=== PATIENT | female | born 1980 | race American Indian/Alaskan Native ===

== ENCOUNTER 2017-04-01 08:37 | Observation (INO) | payer MEDICAID ==
[2017-04-01 09:57] LABS: Basophils % (Auto) 0.3 % (0.0-1.8); Eosinophils % (Auto) 0.2 % (0.0-4.3); Hematocrit 40.6 % (30.3-42.9); Hemoglobin 13.6 gm/dl (10.1-14.3); Mean Corpuscular HGB Conc 34 % (30-34); Mean Corpuscular Hemoglobin 27 pg (28-32); Mean Corpuscular Volume 80 fl (79-97); Platelet Count 316 K/mm3 (140-440); Red Blood Count 5.06 M/mm3 (3.65-5.03); Red Cell Distribution Width 14.8 % (13.2-15.2); White Blood Count 19.9 K/mm3 (4.5-11.0)
[2017-04-01 10:09] LABS: Bacteria,Urine 1+ /HPF (Negative); Bilirubin,Urine NEG (Negative); Blood,Urine MOD (Negative); Ketones,Urine NEG (Negative); Leukocyte Esterase,Urine NEG (Negative); Mucus,Urine FEW /HPF; Nitrite,Urine NEG (Negative); Protein,Urine <15 mg/dL mg/dL (Negative); Urobilinogen,Urine < 2.0 mg/dL (<2.0)
[2017-04-01 10:46] LABS: Alanine Aminotransferase 9 units/L (7-56); Albumin 4.1 g/dL (3.9-5); Alkaline Phosphatase 80 units/L (35-129); Anion Gap 20 mmol/L; Blood Urea Nitrogen 6 mg/dL (7-17); Calcium 9.3 mg/dL (8.4-10.2); Carbon Dioxide 22 mmol/L (22-30); Chloride 98.6 mmol/L (98-107); Glucose 99 mg/dL (65-100); Lipase 16 units/L (13-60); Potassium 3.6 mmol/L (3.6-5.0); Sodium 137 mmol/L (137-145); Total Protein 8.3 g/dL (6.3-8.2)
[2017-04-01] MEDS ORDERED: SUBLIMAZE IV ONE (11:10)
[2017-04-01] MEDS ORDERED: ZOFRAN IV ONE (11:10)
[2017-04-01] MEDS ORDERED: PEPCID IV ONE (11:10)
--- NOTE | 2017-04-01 11:16 | Emergency Department Report ---
HPI - General Chief Complaint: Abdominal Pain Time Seen by Provider: 04/01/17 10:57 - HPI HPI: Room 26 The patient is a 36-year-old female presenting with a chief complaint of abdominal pain. Patient states her symptoms began today with burning pain in the left upper quadrant, epigastric and right upper quadrant. Patient states pain has been intermittent and unchanged with meals. Patient denies radiation of the abdominal pain or use of recent antibiotics. Patient denies nausea vomiting associated has a small amount of diarrhea yesterday morning. Patient denies any history of fever. The patient currently gives her pain a score of 9/ 10. Patient does admit to a cough productive of white sputum for the past 2 weeks Location: [see above] Duration: [see above] Quality: Burning Severity: 9/10 Modifying factors: [see above] Context: [see above] Mode of transportation: [not driving] ED Past Medical Hx - Past Medical History Hx Hypertension: Yes Hx Diabetes: Yes - Surgical History Past Surgical History?: No - Family History Family history: no significant - Social History Smoking Status: Current Every Day Smoker (1/2 pack per day) Substance Use Type: Marijuana - Medications Home Medications: Home Medications Medication Instructions Recorded Confirmed Last Taken Type HYDROcodone/APAP 5-325 [[place] 1 each PO Q6HR PRN #10 tablet 06/11/13 04/01/17 Unknown Rx 5/325 mg] Lisinopril [Zestril] 20 mg PO QDAY 04/01/17 04/01/17 1 Day Ago History ED Review of Systems ROS: Stated complaint: ABD PAIN Other details as noted in HPI Comment: All other systems reviewed and negative Constitutional: denies: chills, fever Eyes: denies: eye pain, eye discharge, vision change ENT: denies: ear pain, throat pain Respiratory: cough. denies: shortness of breath, wheezing Cardiovascular: denies: chest pain, palpitations Endocrine: no symptoms reported Gastrointestinal: abdominal pain, diarrhea. denies: nausea, vomiting Genitourinary: denies: urgency, dysuria, discharge Musculoskeletal: denies: back pain, joint swelling, arthralgia Skin: denies: rash, lesions Neurological: denies: headache, weakness, paresthesias Psychiatric: denies: anxiety, depression Hematological/Lymphatic: denies: easy bleeding, easy bruising Physical Exam - Physical Exam Vital Signs: Vital Signs 04/01/17 04/01/17 04/01/17 08:49 08:52 10:45 Temperature 98.8 F 98.8 F 97.8 F Pulse Rate 70 70 58 L Respiratory 18 18 19 Rate Blood Pressure 156/108 Blood Pressure 156/108 151/90 [Right] O2 Sat by Pulse 100 100 100 Oximetry Physical Exam: GENERAL: The patient is well-developed well-nourished female lying on stretcher not appearing to be in acute distress. [] HEENT: Normocephalic. Atraumatic. Extraocular motions are intact. Patient has moist mucous membranes. NECK: Supple. Trachea midline CHEST/LUNGS: Clear to auscultation. There is no respiratory distress noted. HEART/CARDIOVASCULAR: Regular. There is no tachycardia. There is no gallop rub or murmur. ABDOMEN: Abdomen is soft, with mild discomfort to palpation in the epigastric and right upper quadrant. Patient has normal bowel sounds. There is no abdominal distention. SKIN: There is no rash. There is no edema. There is no diaphoresis. NEURO: The patient is awake, alert, and oriented. The patient is cooperative. The patient has normal speech MUSCULOSKELETAL: There is no CVA tenderness. There is no evidence of acute injury. ED Course Vital Signs 04/01/17 04/01/17 04/01/17 08:49 08:52 10:45 Temperature 98.8 F 98.8 F 97.8 F Pulse Rate 70 70 58 L Respiratory 18 18 19 Rate Blood Pressure 156/108 Blood Pressure 156/108 151/90 [Right] O2 Sat by Pulse 100 100 100 Oximetry - Consultations Consultation #1: 04/01/17 16:[address] Parmar-Will admit ED Medical Decision Making - Lab Data Result diagrams: 04/01/17 09:37 04/01/17 09:37 Laboratory Tests 04/01/17 04/01/17 04/01/17 09:10 09:37 09:37 WBC 19.9 H RBC 5.06 H Hgb 13.6 Hct 40.6 MCV 80 MCH 27 L MCHC 34 RDW 14.8 Plt Count 316 Lymph % (Auto) 16.9 [place] % (Auto) 6.0 Eos % (Auto) 0.2 Baso % (Auto) 0.3 Lymph # 3.4 [place] # 1.2 H Eos # 0.0 Baso # 0.1 Seg Neutrophils % 76.6 H Seg Neutrophils # 15.2 H Sodium 137 Potassium 3.6 Chloride 98.6 Carbon Dioxide 22 Anion Gap 20 BUN 6 L Creatinine 0.6 L Estimated GFR > 60 BUN/Creatinine Ratio 10.00 Glucose 99 Calcium 9.3 Total Bilirubin 0.30 AST 10 ALT 9 Alkaline Phosphatase 80 Total Protein 8.3 H Albumin 4.1 Albumin/Globulin Ratio 1.0 Lipase 16 Urine Color Straw Urine Turbidity Clear Urine pH 7.0 Ur Specific [place] 1.009 Urine Protein <15 mg/dl Urine Glucose (UA) Neg Urine Ketones Neg Urine Blood Mod Urine Nitrite Neg Ur Reducing Substances Not Reportable Urine Bilirubin Neg Urine Ictotest Not Reportable Urine Urobilinogen < 2.0 Ur Leukocyte Esterase Neg Urine WBC (Auto) 1.0 Urine RBC (Auto) 5.0 U Epithel Cells (Auto) 4.0 Urine Bacteria (Auto) 1+ Urine Mucus Few Urine HCG, Qual 04/01/17 10:09 WBC RBC Hgb Hct MCV MCH MCHC RDW Plt Count Lymph % (Auto) Be[place] % (Auto) Eos % (Auto) Baso % (Auto) Lymph # [place] # Eos # Baso # Seg Neutrophils % Seg Neutrophils # Sodium Potassium Chloride Carbon Dioxide Anion Gap BUN Creatinine Estimated GFR BUN/Creatinine Ratio Glucose Calcium Total Bilirubin AST ALT Alkaline Phosphatase Total Protein Albumin Albumin/Globulin Ratio Lipase Urine Color Urine Turbidity Urine pH Ur Specific [place] Urine Protein Urine Glucose (UA) Urine Ketones Urine Blood Urine Nitrite Ur Reducing Substances Urine Bilirubin Urine Ictotest Urine Urobilinogen Ur Leukocyte Esterase Urine WBC (Auto) Urine RBC (Auto) U Epithel Cells (Auto) Urine Bacteria (Auto) Urine Mucus Urine HCG, Qual Negative - EKG Data -: EKG Interpreted by Me EKG shows normal: sinus rhythm Rate: bradycardia (58 bpm) - EKG Data When compared to previous EKG there are: previous EKG unavailable Interpretation: nonspecific ST-T wave edwige (biphasic T-wave in lead 3) - Radiology Data Radiology results: report reviewed (CT abdomen and pelvis, right upper quadrant ultrasound), image reviewed (CT abdomen and pelvis, right upper quadrant ultrasound) see reports - Differential Diagnosis colitis, pancreatitis, gastritis, peptic ulcer disease, UTI Critical care attestation.: If time is entered above; I have spent that time in minutes in the direct care of this critically ill patient, excluding procedure time. ED Disposition Clinical Impression: Cholecystitis, Leukocytosis, Acute abdominal pain Disposition: DC09 OP ADMIT IP TO THIS HOSP Is pt being admited?: Yes Does the pt Need Aspirin: Yes Condition: Fair Instructions: Abdominal Pain (ED) Referrals: PRIMARY CARE, [Primary Care Provider] - 3-5 Days Time of Disposition: 16:12
--- NOTE | 2017-04-01 14:06 | Cat Scan Report ---
CT ABDOMEN AND PELVIS WITHOUT CONTRAST: 04/01/17 08:37:00 CLINICAL:Upper abdominal pain and leukocytosis. TECHNIQUE: Volumetric acquisition and 1.25 millimeter scan reconstructions from the lung bases through the pelvis. The study was performed without oral contrast. FINDINGS: Abdomen:Mild bibasal subsegmental atelectasis. Normal liver size, contour and density. The gallbladder is distended and there is suggestion of a relatively isodense calculus in the gallbladder neck measuring 2.2 cm. The gallbladder wall is normal thickness and there is no pericholecystic fluid or stranding. The bile ducts are normal. Normal stomach, duodenum, pancreas and spleen. Normal adrenal glands. A 2 mm nonobstructive calculus in the lower pole the right kidney. The renal collecting system is normal except for a moderately dilated right renal pelvis. The right ureter is nondilated. Mild dilatation of the left renal pelvis. The left ureter is not distended. Normal aorta and inferior vena cava. The small bowel is normal. Mild diverticulosis of the descending colon but otherwise normal colon. The appendix is normal. No ascites and no pneumoperitoneum. Pelvis: Normal urinary bladder, uterus and rectum.Normal ovaries. Sigmoid colon. No pelvic mass or fluid. IMPRESSION: 1. A 2 cm gallstone which may be lodged in the gallbladder neck. No signs of acute cholecystitis. 2. No evidence of choledocholithiasis. 3. A 2 mm nonobstructive right lower pole renal calculus. 4. Moderate distention of the right renal pelvis without identified etiology. 5. Mild diverticulosis but no diverticulitis. 6. Normal pelvis.
--- NOTE | 2017-04-01 15:57 | Ultrasound Report ---
FINAL REPORT PROCEDURE: US ABDOMEN LIMITED TECHNIQUE: Real-time sonography was performed of right upper quadrant of the abdomen with image documentation. CPT 28543 HISTORY: Upper abdominal pain COMPARISON: CT exam from the same day FINDINGS: Visualized portions of the liver and pancreas display no abnormalities. Right kidney measures 12.6 cm in length and is a 7 millimeter benign cyst in the superior pole. 2.4 cm nonmobile gallstone is seen in the neck of the gallbladder. Gallbladder wall is mildly thickened at 3.5 millimeters may have mild wall edema. Common bile duct is dilated to 7.3 millimeters in diameter. Correlation with MRCP may be useful. IMPRESSION: Cholelithiasis and possible changes of acute cholecystitis are seen. There is extrahepatic biliary ductal dilation. Correlation with MRCP may be useful to assess for obstructing ductal stone.
--- NOTE | 2017-04-01 16:19 | History and Physical Report ---
History of Present Illness Date of examination: 04/01/17 Chief complaint: abd pain History of present illness: 36 year old female with 12-24 hour hx RUQ/epigastic abd pain /10 with WBC 19K, CT abd pelvis and u/s RUQ suggesting impacted stone in neck of gallbladder, LFT s normal, no hx of hepatitis or jaundice. Past History Past Medical History: other (oral controlled) Past Surgical History: No surgical history Social history: smoking Family history: no significant family history Medications and Allergies Allergies Allergy/AdvReac Type Severity Reaction Status Date / Time No Known Allergies Allergy Unverified 06/11/13 14:10 Home Medications Medication Instructions Recorded Confirmed Last Taken Type HYDROcodone/APAP 5-325 [[place] 1 each PO Q6HR PRN #10 tablet 06/11/13 04/01/17 Unknown Rx 5/325 mg] Lisinopril [Zestril] 20 mg PO QDAY 04/01/17 04/01/17 1 Day Ago History Review of Systems - Gastrointestinal abdominal pain, nausea Exam Vital Signs Temp Pulse Resp BP Pulse Ox 98.8 F 70 18 156/108 100 04/01/17 08:49 04/01/17 08:49 04/01/17 08:49 04/01/17 08:49 04/01/17 08:49 - General physical appearance Positive: no distress - Eyes Positive: PERRL, normal occular movement - ENT Positive: normal pinna, normal nares, normal mucosa, no hearing loss, no congestion - Cardiovascular Rhythm: regular Heart Sounds: Present: S1 & S2. Absent: rub, click - Abdomen Abdomen: Present: guarding (MD exam), other (see ER ) Hernia: none Results - Labs 04/01/17 09:37 04/01/17 09:37 Abnormal lab results 04/01/17 04/01/17 Range/Units 09:37 09:37 WBC 19.9 H (4.5-11.0) K/mm3 RBC 5.06 H (3.65-5.03) M/mm3 MCH 27 L (28-32) pg [place] # 1.2 H (0.0-0.8) K/mm3 Seg Neutrophils % 76.6 H (40.0-70.0) % Seg Neutrophils # 15.2 H (1.8-7.7) K/mm3 BUN 6 L (7-17) mg/dL Creatinine 0.6 L (0.7-1.2) mg/dL Total Protein 8.3 H (6.3-8.2) g/dL Diabetes panel 04/01/17 Range/Units 09:37 Sodium 137 (137-145) mmol/L Potassium 3.6 (3.6-5.0) mmol/L Chloride 98.6 (98-107) mmol/L Carbon Dioxide 22 (22-30) mmol/L BUN 6 L (7-17) mg/dL Creatinine 0.6 L (0.7-1.2) mg/dL Glucose 99 (65-100) mg/dL Calcium 9.3 (8.4-10.2) mg/dL AST 10 (5-40) units/L ALT 9 (7-56) units/L Alkaline Phosphatase 80 (35-129) units/L Total Protein 8.3 H (6.3-8.2) g/dL Albumin 4.1 (3.9-5) g/dL Calcium panel 04/01/17 Range/Units 09:37 Calcium 9.3 (8.4-10.2) mg/dL Albumin 4.1 (3.9-5) g/dL Pituitary panel 04/01/17 Range/Units 09:37 Sodium 137 (137-145) mmol/L Potassium 3.6 (3.6-5.0) mmol/L Chloride 98.6 (98-107) mmol/L Carbon Dioxide 22 (22-30) mmol/L BUN 6 L (7-17) mg/dL Creatinine 0.6 L (0.7-1.2) mg/dL Glucose 99 (65-100) mg/dL Calcium 9.3 (8.4-10.2) mg/dL Adrenal panel 04/01/17 Range/Units 09:37 Sodium 137 (137-145) mmol/L Potassium 3.6 (3.6-5.0) mmol/L Chloride 98.6 (98-107) mmol/L Carbon Dioxide 22 (22-30) mmol/L BUN 6 L (7-17) mg/dL Creatinine 0.6 L (0.7-1.2) mg/dL Glucose 99 (65-100) mg/dL Calcium 9.3 (8.4-10.2) mg/dL Total Bilirubin 0.30 (0.1-1.2) mg/dL AST 10 (5-40) units/L ALT 9 (7-56) units/L Alkaline Phosphatase 80 (35-129) units/L Total Protein 8.3 H (6.3-8.2) g/dL Albumin 4.1 (3.9-5) g/dL Assessment and Plan Acute Cholecystitis admit,NPO,IV antibioitics, iv fluids, pain control.
[2017-04-01] MEDS ORDERED: DULCOLAX PR PRN (16:22)
[2017-04-01] MEDS ORDERED: MILK OF MAGNESIA PO PRN (16:22)
[2017-04-01] MEDS ORDERED: ZOFRAN IV PRN (16:22)
[2017-04-01] MEDS ORDERED: TYLENOL PO PRN (16:22)
[2017-04-01] MEDS ORDERED: PERCOCET 5/325 PO PRN (16:22)
[2017-04-01] MEDS: MORPHINE IV PRN ×2 (17:03→21:18)
[2017-04-01] MEDS: NACL 0.9% 1000 ML 1,000 ML IV SCH (17:04)
[2017-04-01] MEDS ORDERED: ZOFRAN ONE (18:12)
[2017-04-02] MEDS: MORPHINE IV PRN (01:05)
[2017-04-02] MEDS: NACL 0.9% 1000 ML 1,000 ML IV SCH (01:06)
[2017-04-02 01:08] VITALS: BP 145/74
[2017-04-02 05:26] LABS: Alanine Aminotransferase 7 units/L (7-56); Albumin 3.8 g/dL (3.9-5); Alkaline Phosphatase 76 units/L (35-129); Anion Gap 20 mmol/L; BUN/Creatinine Ratio 11.66; Blood Urea Nitrogen 7 mg/dL (7-17); Carbon Dioxide 23 mmol/L (22-30); Chloride 101.8 mmol/L (98-107); Glucose 91 mg/dL (65-100); Sodium 141 mmol/L (137-145); Total Protein 7.7 g/dL (6.3-8.2)
--- NOTE | 2017-04-02 06:36 | Event Note ---
Date: 04/02/17 VSS AFebrile, patient has no pain, pain completely resolved, I have offered to remove her gallbladder but the patient declines it, I had a long and detailed discussion about the symptoms of cholelithiasis, and her options, she is set against surgery and wants conservative management, her abd exam is benign, I will discharge her home and told her to return to the ER if her pain returns.Case cancelled.
--- NOTE | 2017-04-02 06:40 | Discharge Summary ---
Providers - Providers Date of Admission: 04/01/17 17:59 Date of discharge: 04/02/17 Attending physician: SOLANGE LUKE Primary care physician: CRANIOLOGIST Hospitalization Reason for admission: abd pain Condition: Fair Pertinent studies: CT abd pelvis and ultrasound RUQ Procedures: none -patient refused surgery. Hospital course: PT admitted, NPO,iv fluids, antibiotics,scheduled for OR-patient refused surgery , sent home. Disposition: DC-01 TO HOME OR SELFCARE Time spent for discharge: 20min Core Measure Documentation - Palliative Care Palliative Care/ Comfort Measures: Not Applicable - Core Measures Any of the following diagnoses?: none Exam - Constitutional Vitals: Temp Pulse Resp BP Pulse Ox 99.0 F 52 L 20 145/74 100 04/02/17 00:00 04/02/17 00:00 04/02/17 00:00 04/02/17 00:00 04/02/17 00:00 General appearance: Present: no acute distress - EENT Eyes: Present: PERRL ENT: hearing intact, clear oral mucosa - Neck Neck: Present: supple, normal ROM - Respiratory Respiratory effort: normal - Cardiovascular Heart Sounds: Present: S1 & S2. Absent: rub, click - Extremities Extremities: pulses symmetrical, No edema Peripheral Pulses: within normal limits - Abdominal General gastrointestinal: Present: soft, non-tender, normal bowel sounds - Psychiatric Psychiatric: appropriate mood/affect, intact judgment & insight Plan Diet: low fat Follow up with: PRIMARY CARE, [Primary Care Provider] - 3-5 Days
--- NOTE | 2017-04-02 08:57 | Discharge Summary ---
DISCHARGE DIAGNOSIS: Abdominal pain, probable symptomatic cholelithiasis. PROCEDURES: The patient underwent CT scan of the abdomen and pelvis and an ultrasound of right upper quadrant. HOSPITAL COURSE: This is a 36-year-old female, who presented with a 12-hour history of epigastric and right upper quadrant abdominal pain. She had a white count of 19,000 and her liver function tests were entirely normal. A CT scan of abdomen demonstrated question of a gallstones, which was possibly impacted in the neck of the gallbladder. Subsequently, ultrasound demonstrated mild wall thickening and the question of the impacted stone in the neck of the gallbladder. The patient was admitted to the hospital, made n.p.o. She was placed on IV Zosyn. Given narcotics for pain control. There is of note that liver function tests were completely normal. Basically, I spoke with her in detail. Her pain completely resolved after a couple of hours when she was admitted to the hospital. When I saw her, I had a long discussion regarding the recommendations for removal of the gallbladder for symptomatic gallstones. The patient was adamant that she did not and refused surgery, which I offered to her. She was completely pain-free with negative Beaver's and completely benign exam and as a result in view of the stump probably dropped back into the body of the gallbladder, she was not having any pain. She was afebrile. Her vital signs were completely stable. Her blood sugars were normal and her repeat LFTs were normal, so as a result, I discharged her home. I gave her a prescription for ciprofloxacin for 5 days. She did not write for any pain medicine. I told her that if her pain returned even though I had offered her gallbladder surgery, she should return to the Emergency Room immediately. JOB# [id number] FARHAD/CAMRYN
== END 2017-04-02 07:16 | disposition home or self-care (01) ==
LOC: ED 08:37 → 3A 17:59
PROVIDERS: ADMIT Surgery; ATTEND Surgery
DX: K81.0 Acute cholecystitis (principal); I10 Essential (primary) hypertension; E11.9 Type 2 diabetes mellitus without complications; F17.210 Nicotine dependence, cigarettes, uncomplicated
CPT/HCPCS: 36415; 74176; 76705; 80053; 81001; 81025; 83690; 85025; 93005; 93010; 96361; 96374; 96375; 96376; 99285; G0378; J2270; J2405; J3010; J7030

== ENCOUNTER 2018-11-20 12:05 | Emergency (ER) | payer MEDICAID, OTHER ==
[2018-11-20 12:27] VITALS: BP 107/83
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
[2018-11-20] MEDS ORDERED: IBUPROFEN PO ONE ×2 (13:34→13:36)
--- NOTE | 2018-11-20 13:45 | XRay Report ---
LUMBOSACRAL SPINE, 3 VIEWS: History: Low back pain Findings: The vertebral bodies, disk spaces and posterior elements are intact. No compression deformity or malalignment. Mild disc space narrowing is noted at L5-S1. The SI joints are symmetric and unremarkable. Impression: Early degenerative changes at L5-S1. No evidence for acute injury to the lumbar spine.
--- NOTE | 2018-11-20 13:45 | XRay Report ---
RIGHT SHOULDER, 3 VIEWS: HISTORY: right shoulder pain. Normal bone mineralization. No acute osseous injury or joint pathology is detected. The soft tissues are unremarkable. IMPRESSION: Right shoulder within normal limits.
[2018-11-20] MEDS ORDERED: NORCO 10/325 PO ONE (14:56)
[2018-11-20] MEDS ORDERED: ZOFRAN ODT PO ONE (14:56)
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
== END 2018-11-20 15:26 | disposition home or self-care (01) ==
LOC: ED 12:05
DX: S39.012A Strain of muscle, fascia and tendon of lower back, initial encounter (principal); S66.911A Strain of unspecified muscle, fascia and tendon at wrist and hand level, right hand, initial encounter; I10 Essential (primary) hypertension; E11.9 Type 2 diabetes mellitus without complications; F17.200 Nicotine dependence, unspecified, uncomplicated; Z90.49 Acquired absence of other specified parts of digestive tract; V89.2XXA Person injured in unspecified motor-vehicle accident, traffic, initial encounter; Y93.89 Activity, other specified; Y92.488 Other paved roadways as the place of occurrence of the external cause; Y99.8 Other external cause status
CPT/HCPCS: 72100; 99283; Q0162